=== PATIENT | female | born 1960 | race Caucasian/White ===

== ENCOUNTER → 2019-10-11 | Outpatient (CLI) | payer OTHER ==
--- NOTE | 2019-10-11 11:04 | Diagnostic Imaging Report ---
INDICATION: Chronic left knee pain. COMPARISON: None available. TECHNIQUE: Four radiographs of the left knee dated October 11, 2019. FINDINGS: Osseous demineralization. No acute fracture or dislocation. No destructive osseous process. Moderate medial and lateral joint space narrowing. No significant osteophytosis. No joint effusion. No suspicious radiopaque foreign body. IMPRESSION: No acute osseous abnormality with [id number] degenerative changes without significant osteophyte formation. Osseous demineralization. Dictated by: Dictated on workstation # [id number]
== END ==
LOC: RAD FS 10:35
PROVIDERS: ATTEND Family Medicine
DX: M17.12 Unilateral primary osteoarthritis, left knee (principal)
CPT/HCPCS: 73562

== ENCOUNTER → 2021-03-02 | Outpatient (CLI) | payer OTHER ==
--- NOTE | 2021-03-02 09:56 | Diagnostic Imaging Report ---
PROCEDURE: MR imaging of the brain without contrast. TECHNIQUE: Multiplanar, multisequence MR imaging of the brain was performed without contrast. INDICATION: Random body pain. Weakness. COMPARISON: none Findings: No acute ischemia, mass, or hemorrhage. The ventricles and cortical sulci are mildly prominent. The basilar cisterns are symmetric and unremarkable. The sellar and suprasellar regions have a normal appearance. The brainstem and posterior fossa are unremarkable. The paranasal sinuses and mastoid air cells demonstrate normal signal characteristics. The globes and orbits are symmetric and unremarkable. The scalp and calvarium have a normal appearance. Impression: 1. No acute ischemia, mass, or hemorrhage. 2. Mild parenchymal volume loss. Dictated by: Dictated on workstation # [id number]
== END ==
LOC: RAD 08:45
PROVIDERS: ATTEND Nurse Practitioner Family
DX: G31.9 Degenerative disease of nervous system, unspecified (principal)
CPT/HCPCS: 70551

== ENCOUNTER → 2021-07-15 | Outpatient (CLI) | payer SELFPAY ==
--- NOTE | 2021-07-15 17:04 | Diagnostic Imaging Report ---
EXAMINATION: CT calcium scoring without contrast. TECHNIQUE: Multiple contiguous axial images were obtained through the chest without the use of intravenous contrast for purposes of calcium scoring. All CT scans use one or more of the following dose optimizing techniques: automated exposure control, MA and/or KvP adjustment based on patient size and exam type or iterative reconstruction. HISTORY: Chest pain. COMPARISON: None available. FINDINGS: The calculated coronary artery calcium score is 125.4. There is no edema or pneumonia. No pleural effusion. No pneumothorax. No suspicious nodules. Heart size is normal. No pericardial effusion. Aorta is normal in caliber. There is no mediastinal lymphadenopathy. Limited views of the upper abdomen are unremarkable. There are no suspicious osseus lesions. IMPRESSION: Calculated coronary artery calcium score of 125.4 placing the patient between the 75th and 90th percentiles. Dictated by: Dictated on workstation # [id number]
== END ==
LOC: RAD FS 13:47
PROVIDERS: ATTEND Family Medicine
DX: R07.9 Chest pain, unspecified (principal); E78.00 Pure hypercholesterolemia, unspecified; Z87.891 Personal history of nicotine dependence
CPT/HCPCS: 75571

== ENCOUNTER → 2021-09-28 | Outpatient (CLI) | payer OTHER ==
[2021-09-28 09:42] VITALS: BP 132/85
== END ==
LOC: CARD 10:00
PROVIDERS: ATTEND Internal Medicine Cardiovascular Disease
DX: I25.10 Atherosclerotic heart disease of native coronary artery without angina pectoris (principal); I10 Essential (primary) hypertension